=== PATIENT | female | born 1990 | race Caucasian/White ===

== ENCOUNTER 2022-03-18 11:42 | Emergency (ER) | payer MEDICAID ==
[~2022-03-18] VITALS: Ht 157.5 cm; Wt 88.2 kg
[~2022-03-18 11:42] MED LIST: ACET-3068 PO; CEPH-571 PO; CLON-527 PO; CLOT15CR9 TP; DIPH-423 PO; FLO0.4C PO; FLUO10CA66 PO; IBUP-1986 PO; LIDO20SO PO; ZOF4T PO
[2022-03-18 11:49] VITALS: BP 121/61
[2022-03-18] MEDS ORDERED: CEPH250T PO (13:33)
== END 2022-03-18 13:45 | disposition home or self-care (01) ==
LOC: ER 11:42
DX: L03.116 Cellulitis of left lower limb (principal); G89.29 Other chronic pain; Z88.0 Allergy status to penicillin; Z88.6 Allergy status to analgesic agent; Z88.5 Allergy status to narcotic agent; Z79.899 Other long term (current) drug therapy; Z79.2 Long term (current) use of antibiotics; Z79.1 Long term (current) use of non-steroidal anti-inflammatories (NSAID)
CPT/HCPCS: 99284

== ENCOUNTER 2024-02-06 20:07 | Emergency (ER) | payer MEDICAID, OTHER ==
[~2024-02-06] VITALS: Ht 157.5 cm; Wt 92.3 kg
[2024-02-06 20:11] VITALS: TEMP 98.3
[2024-02-06] MEDS ORDERED: HYDR-3965 PO (21:21)
[2024-02-06] MEDS: HYDROcodone/acetaminophen 5mg/325mg tablet PO ONE (21:42)
[2024-02-06] MEDS: ondansetron 4mg rapidly disintigrating tab PO ONE (21:43)
[2024-02-06] MEDS: acetaminophen 325mg tablet PO ONE (21:43)
[2024-02-06] MEDS: ketorolac trometh. 30mg/ml inj. IM ONE (21:50)
[2024-02-06 22:02] VITALS: BP 112/65; PULSE 80; RESP 12; O2SAT 95
== END 2024-02-06 22:03 | disposition home or self-care (01) ==
LOC: ER 20:08
DX: M02.39 Reiter's disease, multiple sites (principal); Z88.0 Allergy status to penicillin; Z88.5 Allergy status to narcotic agent; Z88.6 Allergy status to analgesic agent; Z79.899 Other long term (current) drug therapy; Z79.2 Long term (current) use of antibiotics; Z79.1 Long term (current) use of non-steroidal anti-inflammatories (NSAID)
CPT/HCPCS: 96372; 99284; J1885